=== PATIENT | female | born 1990 | race African-American/Black ===

== ENCOUNTER → 2018-05-26 | Outpatient (REF) | payer OTHER, MEDICAID ==
[2018-05-26 19:35] LABS: ALBUMIN 3.7 GM/DL (3.2-5.2); ALT/SGPT 21 U/L (12-78); BILIRUBIN,TOTAL 0.3 MG/DL (0.2-1.0); BLOOD UREA NITROGEN 13 MG/DL (7-18); CALCIUM LEVEL 8.3 MG/DL (8.5-10.1); CARBON DIOXIDE LEVEL 28 MEQ/L (21-32); CHLORIDE LEVEL 106 MEQ/L (98-107); CHOLESTEROL LEVEL 125 MG/DL (<200); CHOLESTEROL RISK RATIO 3.289 (<5); CREATININE FOR GFR 0.93 MG/DL (0.55-1.30); GLOMERULAR FILTRATION RATE > 60.0 (>60); GLUCOSE, FASTING 87 MG/DL (70-100); HDL CHOLESTEROL 38 MG/DL (>40); LDL CHOLESTEROL 82 MG/DL (<100); NON-HDL-C 87 MG/DL; SODIUM LEVEL 141 MEQ/L (136-145); TOTAL PROTEIN 7.4 GM/DL (6.4-8.2); TRIGLYCERIDES LEVEL 26 MG/DL (<150)
[2018-05-26 20:12] LABS: HIV 1&2 SCREEN CENTAUR NEGATIVE (NEGATIVE)
== END ==
LOC: M LAB REF 18:01
PROVIDERS: ATTEND Family Medicine Addiction Medicine
DX: Z00.00 Encounter for general adult medical examination without abnormal findings (principal)

== ENCOUNTER → 2018-07-04 | Outpatient (CLI) | payer OTHER ==
[2018-07-04 16:41] LABS: BASO % 0.5 % (0.0-1.0); EOS % 0.7 % (0.0-3.0); HEMATOCRIT 39.5 % (36.0-47.0); HEMOGLOBIN 13.1 g/dl (12.0-15.5); LYMPH # 2.4 10^3/uL (1.5-6.5); LYMPH % 38.8 % (24.0-44.0); MEAN CORPUSCULAR HEMOGLOBIN 27.5 pg (27.0-33.0); MEAN CORPUSCULAR HGB CONC 33.2 g/dl (32.0-36.5); MEAN CORPUSCULAR VOLUME 82.8 fl (80.0-96.0); MONO # 0.6 10^3/uL (0.0-0.8); MONO % 9.2 % (0.0-5.0); NEUTROPHILS # 3.1 10^3/uL (1.8-7.7); NEUTROPHILS % 50.6 % (36.0-66.0); PLATELET COUNT, AUTOMATED 262 10^3/uL (150-450); RED BLOOD COUNT 4.77 10^6/uL (4.00-5.40); WHITE BLOOD COUNT 6.1 10^3/uL (4.0-10.0)
[2018-07-04 17:09] LABS: ALBUMIN 3.6 GM/DL (3.2-5.2); ALT/SGPT 20 U/L (12-78); BILIRUBIN,TOTAL 0.4 MG/DL (0.2-1.0); BLOOD UREA NITROGEN 9 MG/DL (7-18); CALCIUM LEVEL 8.9 MG/DL (8.5-10.1); CARBON DIOXIDE LEVEL 29 MEQ/L (21-32); CHLORIDE LEVEL 103 MEQ/L (98-107); CREATININE FOR GFR 0.77 MG/DL (0.55-1.30); FREE T4 1.07 NG/DL (0.76-1.46); GLOMERULAR FILTRATION RATE > 60.0 (>60); GLUCOSE, FASTING 78 MG/DL (70-100); HCG, SERUM QUANTITATIVE 28559 MIU/ML; POTASSIUM SERUM 4.5 MEQ/L (3.5-5.1); SODIUM LEVEL 135 MEQ/L (136-145); TOTAL PROTEIN 7.6 GM/DL (6.4-8.2)
== END ==
LOC: M WUC 13:19
PROVIDERS: ATTEND Physician Assistant
DX: Z33.1 Pregnant state, incidental (principal)

== ENCOUNTER → 2018-07-04 | Outpatient (REF) | payer OTHER ==
[2018-07-04 20:28] LABS: CHLAMYDIA DNA AMPLIFICATION NEGATIVE (NEGATIVE); GC DNA AMPLIFICATION NEGATIVE (NEGATIVE)
== END ==
LOC: M LAB REF 17:13
PROVIDERS: ATTEND Physician Assistant
DX: Z33.1 Pregnant state, incidental (principal)

== ENCOUNTER → 2018-07-28 | Outpatient (CLI) | payer OTHER ==
[2018-07-28 13:46] LABS: BASO % 0.3 % (0.0-1.0); EOS % 0.7 % (0.0-3.0); HEMATOCRIT 37.8 % (36.0-47.0); HEMOGLOBIN 12.7 g/dl (12.0-15.5); MEAN CORPUSCULAR HGB CONC 33.6 g/dl (32.0-36.5); MEAN CORPUSCULAR VOLUME 83.4 fl (80.0-96.0); MONO # 0.6 10^3/uL (0.0-0.8); NEUTROPHILS # 3.2 10^3/uL (1.8-7.7); NEUTROPHILS % 54.7 % (36.0-66.0); PLATELET COUNT, AUTOMATED 270 10^3/uL (150-450); RED BLOOD COUNT 4.53 10^6/uL (4.00-5.40); WHITE BLOOD COUNT 5.8 10^3/uL (4.0-10.0)
[2018-07-28 14:41] LABS: HIV 1&2 SCREEN CENTAUR NEGATIVE (NEGATIVE); RUBELLA IgG QUALITATIVE IMMUNE (IMMUNE)
[2018-07-28 15:33] LABS: CHLAMYDIA DNA AMPLIFICATION NEGATIVE (NEGATIVE); GC DNA AMPLIFICATION NEGATIVE (NEGATIVE)
== END ==
LOC: M SMT 10:51
PROVIDERS: ATTEND Obstetrics & Gynecology
DX: Z36.89 Encounter for other specified antenatal screening (principal); Z3A.10 10 weeks gestation of pregnancy

== ENCOUNTER → 2018-10-02 | Outpatient (CLI) | payer OTHER ==
--- NOTE | 2018-10-02 14:56 | REP ---
REASON: anatomy. PRIORS: None. Multiple ultrasonographic images of the gravid uterus show a single living intrauterine gestation in the cephalic presentation. Doppler interrogation of the heart shows the heart rate of 150 beats per minute. The placenta is anterior and not low lying. The subjective amniotic fluid volume is within normal limits. The cervix measures 4.3 cm in length but is closed. Evaluation of the maternal adnexal spaces showed no abnormalities. CHART: BPD 4.7 cm = 20 weeks 1 day HC 17.4 cm = 20 weeks 0 day AC 14.0cm = = 19 weeks 3 days FL 3.2 cm = 20 weeks 1 day The estimated weight is 311 grams, which is at the 52nd percentile for a 33-kinz-3-day gestational age. The structures visualized as unremarkable are as follows. Thalami, cavum septum pellucidum, cerebellum, cisterna magna, cerebral ventricles, spine, kidneys, urinary bladder, cord insertion, three vessel umbilical cord, four-chamber heart, left ventricular outflow tract, upper and lower extremities, and upper lobe. The only structure not well visualized today was the right ventricular outflow tract. IMPRESSION: Single living intrauterine gestation as described above with an estimated gestational age of 19 weeks 6 days via composite criteria and an estimated date of delivery of 02/20/2019 by today's exam. No anomalies were detected, however, I recommend a followup examination to better visualize the right ventricular outflow tract. Electronically Signed by Holden Hernandez DO 10/02/2018 04:48 P
== END ==
LOC: M RAD 10:51
PROVIDERS: ATTEND Specialist
DX: Z34.82 Encounter for supervision of other normal pregnancy, second trimester (principal); Z3A.19 19 weeks gestation of pregnancy

== ENCOUNTER → 2018-10-26 | Outpatient (CLI) | payer OTHER ==
--- NOTE | 2018-10-26 12:24 | REP ---
Obstetric sonography: History: Supervision of . Followup anatomy, right ventricular outflow tract. Findings: Scanning through the gravid uterus demonstrates a viable single intrauterine gestation in a cephalic lie. motion is observed and heart rate is recorded at 134 beats per minute. An anterior grade 0 placenta is seen without evidence of previa. Amniotic fluid is subjectively normal. Closed cervical length is measured at 4.3 cm, viewed transabdominally. No extrauterine abnormalities observed. There has been appropriate interval growth. No abnormality is noted. kidneys are less than optimally seen today but were previously identified. The following additional anatomic structures are identified today and felt to be unremarkable: cranium, choroid plexus, cavum, cerebellum and posterior fossa, face and profile, lungs, four-chamber heart with left and right ventricular outflow tract views, diaphragm, left-sided stomach, abdominal wall cord insertion, three-vessel cord, urinary bladder, spine, and upper and lower extremities. Biometry chart: BPD 5.7 cm = 23 weeks 3 days Head circumference 21.2 cm = 23 weeks 2 days Abdominal circumference 18.1 cm = 23 weeks 0 days Femur length 4.2 cm = 23 weeks 5 days Humeral length 3.9 cm = 23 weeks 6 days HC/AC ratio normal 1.17. Cephalic index normal 0.74. Estimated weight 583 grams, 1 pound 4 ounces, 55th percentile for 23 weeks 0 days. Impression: Viable single intrauterine gestation at 23 weeks 3 days by today's composite sonographic criteria. Expected gestational age estimate based on prior sonography 23 weeks 2 days. There has been appropriate interval growth. BEATRICE by prior sonography February 20, 2019. anatomic survey is felt to be complete in conjunction with prior study. Electronically Signed by Eligio West MD 10/26/2018 12:47 P
== END ==
LOC: M RAD 10:29
PROVIDERS: ATTEND Specialist
DX: Z34.82 Encounter for supervision of other normal pregnancy, second trimester (principal)

== ENCOUNTER → 2018-11-16 | Outpatient (CLI) | payer OTHER ==
[2018-11-16 13:45] LABS: BASO % 0.3 % (0.0-1.0); EOS # 0.1 10^3/uL (0.0-0.5); EOS % 0.9 % (0.0-3.0); HEMATOCRIT 33.3 % (36.0-47.0); HEMOGLOBIN 11.2 g/dl (12.0-15.5); LYMPH % 26.1 % (24.0-44.0); MEAN CORPUSCULAR HEMOGLOBIN 28.6 pg (27.0-33.0); MEAN CORPUSCULAR HGB CONC 33.6 g/dl (32.0-36.5); MEAN CORPUSCULAR VOLUME 84.9 fl (80.0-96.0); MONO # 0.6 10^3/uL (0.0-0.8); MONO % 7.9 % (0.0-5.0); NEUTROPHILS % 64.3 % (36.0-66.0); PLATELET COUNT, AUTOMATED 219 10^3/uL (150-450); RED BLOOD COUNT 3.92 10^6/uL (4.00-5.40); WHITE BLOOD COUNT 7.7 10^3/uL (4.0-10.0)
== END ==
LOC: M SMT 09:31
PROVIDERS: ATTEND Specialist
DX: Z34.82 Encounter for supervision of other normal pregnancy, second trimester (principal); Z36.89 Encounter for other specified antenatal screening

== ENCOUNTER → 2019-02-01 | Outpatient (REF) | payer OTHER | LOC: M SFHCWAGY 13:14 | PROVIDERS: ATTEND Advanced Practice Midwife | DX: Z36.85 Encounter for antenatal screening for Streptococcus B (principal) ==

== ENCOUNTER 2019-02-28 13:55 | Inpatient (IN) | payer OTHER ==
[~2019-02-28] VITALS: Ht 177.8 cm; Wt 119.0 kg
[2019-02-28 15:07] VITALS: BP 124/73
[2019-02-28] MEDS ORDERED: miSOPROStol 50 MCG 1/2 TAB (S0191) PO ONE ×2 (15:15→20:00)
[2019-02-28 15:21] LABS: HEMATOCRIT 37.5 % (36.0-47.0); HEMOGLOBIN 12.2 g/dl (12.0-15.5); MEAN CORPUSCULAR HEMOGLOBIN 26.9 pg (27.0-33.0); MEAN CORPUSCULAR HGB CONC 32.5 g/dl (32.0-36.5); MEAN CORPUSCULAR VOLUME 82.6 fl (80.0-96.0); PLATELET COUNT, AUTOMATED 218 10^3/uL (150-450); RED BLOOD COUNT 4.54 10^6/uL (4.00-5.40)
[2019-02-28] MEDS ORDERED: PRENTAB9 PO (15:36)
[2019-02-28 15:44] VITALS: BP 126/78
[2019-02-28 15:44] LABS: ALT/SGPT 21 U/L (12-78); BILIRUBIN,TOTAL 0.2 MG/DL (0.2-1.0); CREATININE FOR GFR 0.65 MG/DL (0.55-1.30); GLOMERULAR FILTRATION RATE > 60.0 (>60); LDH LACTATE DEHYDROGENASE 188 U/L (84-246); URIC ACID 4.4 MG/DL (2.6-6.0)
[2019-02-28 15:45] LABS: TOTAL PROTEIN,RANDOM URINE 20.7 MG/DL (0.0-12.0)
--- NOTE | 2019-02-28 16:10 | HPE ---
DATE OF ADMISSION: 02/28/2019 Satya is a 28-year-old, 3, para 1-0-1-1, 40-6/7 weeks gestation, estimated date of confinement (EDC) of 02/22/2019, based on first trimester ultrasound, sent to labor and delivery today following an appointment in the office for complaint of decreased movement. She was found to have a category 2 heart rate tracing and a mildly elevated blood pressure. She does deny headaches, visual disturbances, epigastric pain and right upper quadrant discomfort. She does report some occasional cramping. Does report some scant bloody show. Denies leakage of fluid. Her care was initiated at [facility] in the first trimester. course uncomplicated until today's presentation. OBSTETRICAL HISTORY: 2004, elective termination of . August 2016, spontaneous vaginal delivery, 6 pound 7 ounce female. OBSTETRIC LABS: A+, antibody screen negative, rubella immune, VDRL nonreactive. Urine culture no growth. Hep B surface antigen negative, HIV negative. Hep C antibody nonreactive. Gonorrhea and chlamydia negative. Gestational diabetic screening 84. GBS is negative. PAST MEDICAL HISTORY: Childhood asthma, childhood varicella. SURGERIES: Dilation and curettage (D and C), endoscopy. FAMILY HISTORY: Noncontributory. SOCIAL HISTORY: The patient is single. There is no partner involved. She is a nonsmoker. Denies alcohol and drug use. No history of any sexually transmitted infections and denies any history of physical, sexual or emotional abuse. ALLERGIES: NO KNOWN DRUG ALLERGIES. CURRENT MEDICATIONS: - vitamins OBJECTIVE: Temperature 98.3, pulse 86, respiration 18, blood pressure (BP) is 124/73. She is alert and oriented times three. She is in no discomfort. heart rate is 130 with moderate variability, positive accelerations, no decelerations. Contractions are 4-5 minutes, mild. Abdomen is gravid, cephalic presentation. Estimated weight 8 pounds. Sterile vaginal exam 1 cm dilated, 75% effaced, -3 station, no show. ASSESSMENT: Intrauterine at 40-6/7 weeks, heart rate is category 1 at this time, isolated elevated blood pressure. PLAN: Start misoprostol 50 mcg by mouth for cervical ripening. Routine labs with the addition of pre-eclamptic profile and a spot urine for preeclampsia. Saline lock at this time. Regular diet at this time. The patient has been counseled related to risks, benefits, and alternatives related to induction of labor. All her questions have been answered. She does verbally consent to emergency surgery and blood products if they are necessary. I do anticipate cervical ripening and an active labor.
[2019-02-28] MEDS ORDERED: OXYTOCIN DRIP 30 UNITS in IV 1 EA IV SCH (23:45)
[2019-03-01] VITALS (50 sets, daily range): BP systolic 90–169; BP diastolic 50–96
[2019-03-01] MEDS: LR 1,000 ML IV SCH ×4 (00:13→11:20)
[2019-03-01] MEDS ORDERED: FENTANYL 2MCG/ML ROPIVACAINE 0.2% IN 0.9% NACL 100ML IVBAG As Ordered ONE (09:22)
[2019-03-01] MEDS ORDERED: REFRIGERATOR IV KEYS XX PRN (09:36)
[2019-03-01] MEDS ORDERED: ONDANSETRON 4MG/2ML VIAL (J2405) IV PRN ×2 (09:36→13:00)
[2019-03-01] MEDS ORDERED: diphenhydrAMINE INJ 50MG/ML VIAL (J1200) IV PRN (09:36)
[2019-03-01] MEDS ORDERED: EPIDURAL COMMENT XX SCH (09:36)
[2019-03-01] MEDS ORDERED: EPIDURAL/PCA KEYS XX PRN (09:36)
[2019-03-01] MEDS ORDERED: LACTATED RINGER'S 1000 ML IV PRN (09:36)
[2019-03-01] MEDS ORDERED: FENTANYL/ROPIVACAINE/NACL BAG 100 ML EPIDURAL SCH (09:36)
[2019-03-01] MEDS ORDERED: NALOXONE INJ 0.4 MG/1 ML VIAL (J2310) IV PRN (09:36)
[2019-03-01] MEDS: ePHEDrine SULFATE 25 MG/5 ML(5MG/ML) SYRINGE IV PRN ×2 (10:44→10:50)
[2019-03-01] MEDS ORDERED: OXYTOCIN DRIP 30 UNITS in IV 1 EA IV SCH (12:56)
[2019-03-01] MEDS ORDERED: LR 1,000 ML IV SCH (12:56)
[2019-03-01] MEDS ORDERED: DIBUCAINE 1% OINTMENT 30GM TOP PRN (13:00)
[2019-03-01] MEDS ORDERED: ACETAMINOPHEN TAB 650MG DOSE (2X325MG) PO PRN (13:00)
[2019-03-01] MEDS ORDERED: MEASLES,MUMPS,RUBELLA VACCINE INJ (MMR-II) (90707) SC SCH (13:00)
[2019-03-01] MEDS ORDERED: RHOGAM 300 MCG (1500 IU) INJ (J2790) IM SCH (13:00)
[2019-03-01] MEDS ORDERED: ACETAMINOPHEN 500 MG TAB PO PRN (13:00)
[2019-03-01] MEDS ORDERED: DOCUSATE SODIUM 100 MG CAP PO PRN (13:00)
[2019-03-01] MEDS ORDERED: PROMETHAZINE 25 MG TAB PO PRN (13:00)
[2019-03-01] MEDS ORDERED: SLF 3 ML SYR IV PRN (15:30)
[2019-03-01] MEDS: IBUPROFEN 600 MG TAB PO PRN (21:57)
[2019-03-01] MEDS: SLF 3 ML SYR IV SCH (21:58)
[2019-03-02] MEDS: SLF 3 ML SYR IV SCH ×4 (05:30→11:20)
[2019-03-02 05:51] VITALS: BP 130/94
[2019-03-02] MEDS: IBUPROFEN 600 MG TAB PO PRN (07:11)
[2019-03-02] MEDS: PRENATAL VITAMINS CHEWABLE TABLET PO SCH (09:14)
[2019-03-02] MEDS: IBUPROFEN 800 MG TAB PO PRN (17:25)
[2019-03-02 18:05] VITALS: BP 135/82
[2019-03-03 06:00] VITALS: BP 125/70
[2019-03-03] MEDS: PRENATAL VITAMINS CHEWABLE TABLET PO SCH (07:40)
[2019-03-03] MEDS: IBUPROFEN 800 MG TAB PO PRN (11:28)
== END 2019-03-03 11:45 | disposition home or self-care (01) | DRG 541 ==
LOC: M LDI 13:55 → M OBS 03-01 16:00
PROVIDERS: ADMIT Advanced Practice Midwife; ATTEND Advanced Practice Midwife
PROC: 10E0XZZ Delivery of Products of Conception, External Approach (ICD-10-PCS; principal; 2019-03-01)
PROC: 10D17Z9 Manual Extraction of Products of Conception, Retained, Via Natural or Artificial Opening (ICD-10-PCS; 2019-03-01)
DX: O13.4 Gestational [pregnancy-induced] hypertension without significant proteinuria, complicating childbirth (principal); O48.0 Post-term pregnancy; O73.0 Retained placenta without hemorrhage; Z37.0 Single live birth; Z3A.40 40 weeks gestation of pregnancy

== ENCOUNTER → 2019-06-12 | Outpatient (REF) | payer OTHER ==
[~2019-06-12] MED LIST: PRENTAB9 PO
== END ==
LOC: M SFHCWAGY 10:58
PROVIDERS: ATTEND Advanced Practice Midwife
DX: Z12.4 Encounter for screening for malignant neoplasm of cervix (principal)

== ENCOUNTER 2020-05-18 14:38 | Emergency (ER) | payer OTHER ==
[~2020-05-18] VITALS: Ht 177.8 cm; Wt 124.9 kg
[2020-05-18] MEDS ORDERED: ACET-907 PO (14:49)
[2020-05-18] MEDS ORDERED: FLUORESCEIN OPHTH 1 MG STRIP OD ONE (15:40)
[2020-05-18] MEDS ORDERED: TETRACAINE 0.5% OPHTH SOLN 4ML OD ONE (15:40)
[2020-05-18] MEDS ORDERED: CLAR10CA3 PO (16:13)
[2020-05-18] MEDS ORDERED: ARTIDRO OD (16:13)
[2020-05-18 16:31] VITALS: BP 124/89
== END 2020-05-18 16:34 | disposition home or self-care (01) ==
LOC: MERGE 14:38 → EDBD 14:38 → M ED 14:38
DX: H10.31 Unspecified acute conjunctivitis, right eye (principal)

== ENCOUNTER → 2021-10-02 | Outpatient (REF) | payer OTHER ==
[~2021-10-02] MED LIST changes: +ACET-907 PO; +ARTIDRO OD; +CLAR10CA3 PO
[2021-10-02 16:30] LABS: BASO % 0.4 % (0.0-1.0); EOS % 0.7 % (0.0-3.0); HEMATOCRIT 40.8 % (36.0-47.0); HEMOGLOBIN 12.9 g/dl (12.0-15.5); LYMPH # 2.2 10^3/uL (1.5-5.0); LYMPH % 38.6 % (24.0-44.0); MEAN CORPUSCULAR HEMOGLOBIN 27.2 pg (27.0-33.0); MEAN CORPUSCULAR HGB CONC 31.6 g/dl (32.0-36.5); MEAN CORPUSCULAR VOLUME 85.9 fl (80.0-96.0); MONO # 0.5 10^3/uL (0.0-0.8); MONO % 9.1 % (2.0-8.0); NEUTROPHILS # 2.9 10^3/uL (1.5-8.5); NEUTROPHILS % 50.8 % (36.0-66.0); PLATELET COUNT, AUTOMATED 270 10^3/uL (150-450); RED BLOOD COUNT 4.75 10^6/uL (4.00-5.40); WHITE BLOOD COUNT 5.7 10^3/uL (4.0-10.0)
[2021-10-02 17:15] LABS: ALBUMIN 3.8 GM/DL (3.2-5.2); ALT/SGPT 18 U/L (12-78); BILIRUBIN,TOTAL 0.3 MG/DL (0.2-1.0); BLOOD UREA NITROGEN 11 MG/DL (7-18); CALCIUM LEVEL 9.8 MG/DL (8.5-10.1); CARBON DIOXIDE LEVEL 28 MEQ/L (21-32); CHLORIDE LEVEL 103 MEQ/L (98-107); CREATININE FOR GFR 0.94 MG/DL (0.55-1.30); GLOMERULAR FILTRATION RATE > 60.0 (>60); GLUCOSE, FASTING 80 MG/DL (70-100); MAGNESIUM LEVEL 1.9 MG/DL (1.8-2.4); PHOSPHORUS LEVEL 3.6 MG/DL (2.5-4.9); POTASSIUM SERUM 4.5 MEQ/L (3.5-5.1); SODIUM LEVEL 135 MEQ/L (136-145); TOTAL PROTEIN 7.6 GM/DL (6.4-8.2)
== END ==
LOC: M LAB REF 16:08
PROVIDERS: ATTEND Nurse Practitioner Family
DX: R00.1 Bradycardia, unspecified (principal)

== ENCOUNTER 2022-08-18 13:00 | Outpatient (RCR) | payer OTHER | END 2022-08-20 | LOC: M PT 13:00 | PROVIDERS: ATTEND Nurse Practitioner Family | DX: M54.6 Pain in thoracic spine (principal) ==

== ENCOUNTER → 2022-10-04 | Outpatient (REF) | payer OTHER | LOC: M LAB REF 13:16 | PROVIDERS: ATTEND Nurse Practitioner Family | DX: R06.00 Dyspnea, unspecified (principal) ==

== ENCOUNTER → 2022-10-07 | Outpatient (CLI) | payer OTHER ==
[~2022-10-07] MED LIST changes: +ISOVUE-370 76% 100ML VIAL As Ordered ONE
== END ==
LOC: M RAD 10:20
PROVIDERS: ATTEND Nurse Practitioner Family
DX: R89.9 Unspecified abnormal finding in specimens from other organs, systems and tissues (principal)
CPT/HCPCS: 71275; Q9967

== ENCOUNTER → 2023-01-02 | Outpatient (REF) | payer OTHER ==
[~2023-01-02] MED LIST changes: -ISOVUE-370 76% 100ML VIAL As Ordered ONE
== END ==
LOC: M LAB REF 18:24
PROVIDERS: ATTEND Physician Assistant Medical
DX: R05.9 Cough, unspecified (principal)

== ENCOUNTER → 2023-01-04 | Outpatient (REF) | payer OTHER | LOC: M LAB REF 15:56 | PROVIDERS: ATTEND Nurse Practitioner Family | DX: R06.00 Dyspnea, unspecified (principal) ==

== ENCOUNTER → 2023-04-14 | Outpatient (CLI) | payer OTHER ==
[~2023-04-14] MED LIST changes: +METHACHOLINE KIT INH ONE
== END ==
LOC: M CARPUL 14:10
PROVIDERS: ATTEND Physician Assistant
DX: R06.00 Dyspnea, unspecified (principal)
CPT/HCPCS: 94070; 95070; J7674

== ENCOUNTER → 2023-11-22 | Outpatient (REF) | payer OTHER ==
[~2023-11-22] MED LIST changes: -METHACHOLINE KIT INH ONE
[2023-11-22 18:45] LABS: BLOOD UREA NITROGEN 18 MG/DL (9-23); CARBON DIOXIDE LEVEL 30 MMOL/L (20-31); CHLORIDE LEVEL 104 MMOL/L (98-107); CREATININE FOR GFR 0.82 MG/DL (0.55-1.30); GLOMERULAR FILTRATION RATE > 60.0 (>60); GLUCOSE, FASTING 78 MG/DL (60-100); POTASSIUM SERUM 4.7 MMOL/L (3.5-5.1); SODIUM LEVEL 138 MMOL/L (136-145)
[2023-11-25 14:07] LABS: ANA SCREEN, IFA NEGATIVE (NEGATIVE)
== END ==
LOC: M LAB REF 16:23
PROVIDERS: ATTEND Nurse Practitioner Family
DX: M54.6 Pain in thoracic spine (principal)

== ENCOUNTER → 2023-12-09 | Outpatient (CLI) | payer OTHER | LOC: M PLARAD 10:57 | PROVIDERS: ATTEND Nurse Practitioner Family | DX: M54.6 Pain in thoracic spine (principal) ==

== ENCOUNTER → 2024-06-15 | Outpatient (REF) | payer OTHER | LOC: M LAB REF 16:33 | PROVIDERS: ATTEND Physician Assistant | DX: B34.9 Viral infection, unspecified (principal) ==

== ENCOUNTER → 2024-06-22 | Outpatient (REF) | payer OTHER ==
[2024-06-26 14:32] LABS: HPV APTIMA Not Detected (Not Detected)
== END ==
LOC: M LAB REF 18:00
PROVIDERS: ATTEND Nurse Practitioner Family
DX: Z12.4 Encounter for screening for malignant neoplasm of cervix (principal)

== ENCOUNTER → 2024-12-27 | Outpatient (CLI) | payer OTHER | LOC: M SLEEP HO 12:11 | PROVIDERS: ATTEND Physician Assistant | DX: G47.33 Obstructive sleep apnea (adult) (pediatric) (principal); R40.0 Somnolence ==